=== PATIENT | male | born 1965 | race Two or more races ===

== ENCOUNTER 2018-10-08 01:04 | Emergency (ER) | payer OTHER ==
[~2018-10-08] VITALS: Ht 182.9 cm; Wt 79.4 kg
[2018-10-08] MEDS ORDERED: PERCOCET 10-321 EACH (01:15)
[2018-10-08] MEDS ORDERED: PERCOCET 5-3251 EACH PO (08:21)
== END 2018-10-08 08:40 | disposition home or self-care (01) ==
LOC: ER 01:04
DX: N20.2 Calculus of kidney with calculus of ureter (principal); R10.31 Right lower quadrant pain